=== PATIENT | female | born 1945 | race Caucasian/White ===

== ENCOUNTER 2018-03-06 00:19 | Emergency (ER) | payer MEDICARE ==
[~2018-03-06] VITALS: Ht 170.2 cm; Wt 83.9 kg
[~2018-03-06 00:19] MED LIST: ASPI81CH PO; CEFU500 PO; CITA10S PO; Celexa10 MG PO; LISHYD1012 PO; LISI20 PO; Oxycodone HCl20 M1 PO; PRED10 PO; PREG150 PO; PREG50 PO; TIZANIDINE HCL2 MG PO
[2018-03-06 03:40] LABS: BASOPHILS ABSOLUTE AUTO 0.03 K/mm3 (0.00-0.23); BASOPHILS PERCENT AUTO 0 % (0-2); EOSINOPHILS ABSOLUTE AUTO 0.15 K/mm3 (0.00-0.68); EOSINOPHILS PERCENT AUTO 2 % (0-6); Hematocrit 33.3 % (33.0-51.0); Hemoglobin 10.4 g/dL (11.5-16.0); IMMATURE GRAN ABSOLUTE AUTO 0.02 K/mm3 (0.00-0.10); IMMATURE GRAN PERCENT AUTO 0 % (0-1); LYMPHOCYTES ABSOLUTE AUTO 1.81 K/mm3 (0.84-5.20); LYMPHOCYTES PERCENT AUTO 24 % (21-46); MONOCYTES ABSOLUTE AUTO 0.97 K/mm3 (0.16-1.47); MONOCYTES PERCENT AUTO 13 % (4-13); Mean Corpuscular HGB 28.5 pg (26.0-34.0); Mean Corpuscular HGB Conc 31.2 g/dL (31.5-36.5); Mean Corpuscular Volume 91 fL (80-100); Mean Platelet Volume 11.1 fL (9.1-12.4); NEUTROPHILS ABSOLUTE AUTO 4.56 K/mm3 (1.96-9.15); NEUTROPHILS PERCENT AUTO 60 % (41-73); Platelet Count 159 K/mm3 (150-400); RDW Coefficient Variation 14.5 % (11.7-14.2); RDW Standard Deviation 48.5 fL (35.1-46.3); Red Blood Cell Count 3.65 M/mm3 (3.80-5.20); White Blood Cell Count 7.54 K/mm3 (4.00-11.30)
[2018-03-06 03:59] LABS: Alanine Aminotransfer (ALT/SGP 15 U/L (12-78); Albumin, Blood 3.4 g/dL (3.4-5.0); Alk Phos 66 U/L (50-136); Anion Gap 8 mmol/L (6-16); Aspartate Aminotrans (AST/SGOT 12 U/L (12-37); Bilirubin, Total 0.3 mg/dL (0.1-1.0); Blood Urea Nitrogen 25 mg/dL (8-24); Bun/Creatinine Ratio 16.4 (12.0-20.0); CO2, Blood 27 mmol/L (21-32); Calcium, Blood 8.2 mg/dL (8.5-10.1); Chloride, Blood 106 mmol/L (98-108); Creatinine, Blood 1.52 mg/dL (0.40-1.00); Globulin, Blood 3.4 g/dL (2.2-4.0); Glomerular Filtration Rate 36 (60-); Glucose, Blood 115 mg/dL (70-99); Potassium, Blood 3.9 mmol/L (3.5-5.5); Sodium, Blood 141 mmol/L (136-145); Total Protein, Blood 6.8 g/dL (6.4-8.2); Troponin I <0.015 ng/mL (0.000-0.040)
== END 2018-03-06 04:45 | disposition home or self-care (01) ==
LOC: ER 00:19
PROVIDERS: Emergency Medicine
DX: R29.818 Other symptoms and signs involving the nervous system (principal); G43.909 Migraine, unspecified, not intractable, without status migrainosus; Z88.0 Allergy status to penicillin; Z88.5 Allergy status to narcotic agent; Z91.040 Latex allergy status; Z79.899 Other long term (current) drug therapy; Z79.82 Long term (current) use of aspirin
CPT/HCPCS: 70450; 80053; 84484; 85025; 93005; 93010; 99284-25

== ENCOUNTER 2018-12-19 06:58 | Emergency (ER) | payer MEDICARE, OTHER ==
[~2018-12-19] VITALS: Ht 170.2 cm; Wt 83.9 kg
[2018-12-19] MEDS ORDERED: BACL10 PO (07:39)
[2018-12-19 07:40] LABS: BASOPHILS ABSOLUTE AUTO 0.04 K/mm3 (0.00-0.23); BASOPHILS PERCENT AUTO 0 % (0-2); EOSINOPHILS ABSOLUTE AUTO 0.14 K/mm3 (0.00-0.68); EOSINOPHILS PERCENT AUTO 1 % (0-6); Hematocrit 34.5 % (33.0-51.0); Hemoglobin 10.9 g/dL (11.5-16.0); IMMATURE GRAN ABSOLUTE AUTO 0.03 K/mm3 (0.00-0.10); IMMATURE GRAN PERCENT AUTO 0 % (0-1); LYMPHOCYTES ABSOLUTE AUTO 1.61 K/mm3 (0.84-5.20); LYMPHOCYTES PERCENT AUTO 16 % (21-46); MONOCYTES ABSOLUTE AUTO 0.95 K/mm3 (0.16-1.47); MONOCYTES PERCENT AUTO 10 % (4-13); Mean Corpuscular HGB 28.1 pg (26.0-34.0); Mean Corpuscular HGB Conc 31.6 g/dL (31.5-36.5); Mean Corpuscular Volume 89 fL (80-100); Mean Platelet Volume 11.6 fL (9.1-12.4); NEUTROPHILS ABSOLUTE AUTO 7.08 K/mm3 (1.96-9.15); NEUTROPHILS PERCENT AUTO 72 % (41-73); Platelet Count 171 K/mm3 (150-400); RDW Standard Deviation 49.1 fL (35.1-46.3); Red Blood Cell Count 3.88 M/mm3 (3.80-5.20); White Blood Cell Count 9.85 K/mm3 (4.00-11.30)
[2018-12-19] MEDS ORDERED: ALPR.5 PO (07:40)
[2018-12-19] MEDS ORDERED: FURO40 PO (07:40)
[2018-12-19] MEDS ORDERED: POTCHL10ER PO (07:41)
[2018-12-19 07:49] LABS: Albumin, Blood 3.7 g/dL (3.4-5.0); Albumin/Globulin Ratio 1.1 (0.8-1.8); Bilirubin, Total 0.4 mg/dL (0.1-1.0); Bun/Creatinine Ratio 21.3 (12.0-20.0); Calcium, Blood 8.5 mg/dL (8.5-10.1); Creatinine, Blood 1.74 mg/dL (0.40-1.00); Globulin, Blood 3.4 g/dL (2.2-4.0); Potassium, Blood 3.7 mmol/L (3.5-5.5); Total Protein, Blood 7.1 g/dL (6.4-8.2)
[2018-12-19 08:10] LABS: Source, Urine Clean Catch
[2018-12-19 08:13] LABS: Bilirubin, Urine Neg (Neg); Blood, Urine 1+ (Neg); Glucose Qualitative, Urine Neg (Neg); Ketones, Urine Neg (Neg); Leukocyte Esterase, Urine 1+ (Neg); Nitrite, Urine Neg (Neg); Protein, Urine 1+ (Neg); Urobilinogen, Urine NORM (Normal)
[2018-12-19 08:18] LABS: Appearance, Urine Clear (Clear); Color, Urine Yellow (P-Yellow)
[2018-12-19 08:21] LABS: Bacteria Few /hpf; Red Blood Cells, Urine 0-2 /hpf (0-2); Squamous Epithelial Cells Few /hpf (Few)
[2018-12-19 08:23] LABS: Calcium Oxalate Crystals Rare /hpf
[2018-12-19 08:24] LABS: Transitional Epithelial Cells Rare /hpf (0-Rare)
[2018-12-19] MEDS ORDERED: Macrobid 100 M100 MG PO (08:56)
== END 2018-12-19 10:32 | disposition home or self-care (01) ==
LOC: ER 06:58
PROVIDERS: Emergency Medicine
DX: E86.0 Dehydration (principal); N39.0 Urinary tract infection, site not specified; Z88.0 Allergy status to penicillin; Z88.5 Allergy status to narcotic agent; Z91.040 Latex allergy status; Z79.899 Other long term (current) drug therapy; Z79.82 Long term (current) use of aspirin; F41.9 Anxiety disorder, unspecified; I12.9 Hypertensive chronic kidney disease with stage 1 through stage 4 chronic kidney disease, or unspecified chronic kidney disease; N18.3 Chronic kidney disease, stage 3 (moderate); Z86.73 Personal history of transient ischemic attack (TIA), and cerebral infarction without residual deficits
CPT/HCPCS: 80053; 81001; 85025; 87086; 93005; 93010; 96361; 96365; 99284-25; A9270-GY; J0696; J3010; J7030

== ENCOUNTER → 2019-05-21 | Outpatient (CLI) | payer MEDICARE, BC ==
[~2019-05-21] MED LIST changes: +ALPR.5 PO; +BACL10 PO; +FURO40 PO; +Macrobid 100 M100 MG PO; +POTCHL10ER PO
[2019-05-21 17:43] LABS: BASOPHILS ABSOLUTE AUTO 0.04 K/mm3 (0.00-0.23); BASOPHILS PERCENT AUTO 1 % (0-2); EOSINOPHILS ABSOLUTE AUTO 0.12 K/mm3 (0.00-0.68); EOSINOPHILS PERCENT AUTO 2 % (0-6); Hematocrit 37.4 % (33.0-51.0); Hemoglobin 11.9 g/dL (11.5-16.0); IMMATURE GRAN ABSOLUTE AUTO 0.02 K/mm3 (0.00-0.10); IMMATURE GRAN PERCENT AUTO 0 % (0-1); LYMPHOCYTES ABSOLUTE AUTO 1.21 K/mm3 (0.84-5.20); LYMPHOCYTES PERCENT AUTO 20 % (21-46); MONOCYTES ABSOLUTE AUTO 0.36 K/mm3 (0.16-1.47); MONOCYTES PERCENT AUTO 6 % (4-13); Mean Corpuscular HGB 28.5 pg (26.0-34.0); Mean Corpuscular HGB Conc 31.8 g/dL (31.5-36.5); Mean Corpuscular Volume 90 fL (80-100); Mean Platelet Volume 11.4 fL (9.1-12.4); NEUTROPHILS ABSOLUTE AUTO 4.22 K/mm3 (1.96-9.15); NEUTROPHILS PERCENT AUTO 71 % (41-73); Platelet Count 167 K/mm3 (150-400); RDW Coefficient Variation 14.3 % (11.7-14.2); RDW Standard Deviation 45.8 fL (35.1-46.3); Red Blood Cell Count 4.18 M/mm3 (3.80-5.20); White Blood Cell Count 5.97 K/mm3 (4.00-11.30)
[2019-05-21 17:54] LABS: Anion Gap 6 mmol/L (6-16); Blood Urea Nitrogen 19 mg/dL (8-24); Bun/Creatinine Ratio 18.3 (12.0-20.0); CO2, Blood 27 mmol/L (21-32); Calcium, Blood 8.9 mg/dL (8.5-10.1); Chloride, Blood 108 mmol/L (98-108); Creatinine, Blood 1.04 mg/dL (0.40-1.00); Glomerular Filtration Rate 52 (60-); Glucose, Blood 109 mg/dL (70-99); Potassium, Blood 4.2 mmol/L (3.5-5.5); Sodium, Blood 141 mmol/L (136-145)
[2019-05-21 17:55] LABS: Troponin I <0.017 ng/mL (0.000-0.040)
== END | disposition home or self-care (01) ==
LOC: LAB EV 17:37 → LAB SHORT 17:37
PROVIDERS: Family Medicine
DX: R06.00 Dyspnea, unspecified (principal)
CPT/HCPCS: 80048; 83880; 84484; 85025

== ENCOUNTER → 2020-01-01 | Outpatient (CLI) | payer MEDICARE, BC | END | disposition home or self-care (01) | LOC: LAB SHORT 09:31 → LAB 09:31 → LAB FUT 12-30 15:00 | DX: N18.3 Chronic kidney disease, stage 3 (moderate) (principal); D63.1 Anemia in chronic kidney disease; R76.9 Abnormal immunological finding in serum, unspecified | CPT/HCPCS: 86335 ==

== ENCOUNTER → 2022-05-15 | Outpatient (CLI) | payer MEDICARE ==
[~2022-05-15] MED LIST changes: +Aspir 8181 MG PO; +FURO20 PO; -FURO40 PO; +POTA8 PO; -POTCHL10ER PO
== END | disposition home or self-care (01) ==
LOC: LAB SHORT 14:43 → LAB 14:43
DX: L57.8 Other skin changes due to chronic exposure to nonionizing radiation (principal); L08.9 Local infection of the skin and subcutaneous tissue, unspecified; L81.4 Other melanin hyperpigmentation; L82.1 Other seborrheic keratosis; L60.8 Other nail disorders; L28.1 Prurigo nodularis; I83.93 Asymptomatic varicose veins of bilateral lower extremities; Z71.89 Other specified counseling
CPT/HCPCS: 87070; 87205

== ENCOUNTER 2022-06-24 15:12 | Emergency (ER) | payer MEDICARE ==
[~2022-06-24 15:12] MED LIST changes: -Lasix20 MG PO
[2022-06-24] MEDS ORDERED: Lasix20 MG PO (18:08)
== END 2022-06-24 18:20 | disposition home or self-care (01) ==
DX: R22.43 Localized swelling, mass and lump, lower limb, bilateral (principal); I12.9 Hypertensive chronic kidney disease with stage 1 through stage 4 chronic kidney disease, or unspecified chronic kidney disease; N18.30 Chronic kidney disease, stage 3 unspecified

== ENCOUNTER → 2022-06-24 | Outpatient (CLI) | payer MEDICARE ==
[~2022-06-24] MED LIST changes: +Lasix20 MG PO
== END | disposition home or self-care (01) ==
DX: M79.89 Other specified soft tissue disorders (principal); R53.81 Other malaise

== ENCOUNTER 2022-07-12 10:26 | Observation (INO) | payer MEDICARE ==
[~2022-07-12] VITALS: Ht 175.3 cm; Wt 95.2 kg
[~2022-07-12 10:26] MED LIST changes: +Lasix20 MG PO
[2022-07-12 11:15] LABS: BASOPHILS ABSOLUTE AUTO 0.02 K/mm3 (0.00-0.23); BASOPHILS PERCENT AUTO 0 % (0-2); EOSINOPHILS ABSOLUTE AUTO 0.01 K/mm3 (0.00-0.68); EOSINOPHILS PERCENT AUTO 0 % (0-6); Hematocrit 37.6 % (33.0-51.0); Hemoglobin 12.3 g/dL (11.5-16.0); IMMATURE GRAN ABSOLUTE AUTO 0.03 K/mm3 (0.00-0.10); IMMATURE GRAN PERCENT AUTO 0 % (0-1); LYMPHOCYTES PERCENT AUTO 8 % (21-46); MONOCYTES ABSOLUTE AUTO 0.75 K/mm3 (0.16-1.47); MONOCYTES PERCENT AUTO 7 % (4-13); Mean Corpuscular HGB Conc 32.7 g/dL (31.5-36.5); Mean Corpuscular Volume 86 fL (80-100); NEUTROPHILS ABSOLUTE AUTO 9.89 K/mm3 (1.96-9.15); NEUTROPHILS PERCENT AUTO 85 % (41-73); Platelet Count 222 K/mm3 (150-400); RDW Coefficient Variation 15.1 % (11.7-14.2); RDW Standard Deviation 47.6 fL (35.1-46.3)
[2022-07-12 11:34] LABS: International Normalized Ratio 1.02; Prothrombin Time Results 10.7 Sec (9.7-11.5)
[2022-07-12 11:40] LABS: Alanine Aminotransfer (ALT/SGP 18 U/L (12-78); Albumin, Blood 3.5 g/dL (3.4-5.0); Albumin/Globulin Ratio 0.8 (0.8-1.8); Alk Phos 64 U/L (50-136); Anion Gap 8 mmol/L (6-16); Aspartate Aminotrans (AST/SGOT 23 U/L (12-37); Bilirubin, Total 0.9 mg/dL (0.1-1.0); Blood Urea Nitrogen 29 mg/dL (8-24); Bun/Creatinine Ratio 19.5 (12.0-20.0); CO2, Blood 25 mmol/L (21-32); Calcium, Blood 9.5 mg/dL (8.5-10.1); Chloride, Blood 112 mmol/L (98-108); Creatinine, Blood 1.49 mg/dL (0.40-1.00); Ethanol (Alcohol), Blood, Med <3 mg/dL; Globulin, Blood 4.2 g/dL (2.2-4.0); Glomerular Filtration Rate 36 (60-); Glucose, Blood 111 mg/dL (70-99); Potassium, Blood 3.9 mmol/L (3.5-5.5); Sodium, Blood 145 mmol/L (136-145); Total Protein, Blood 7.7 g/dL (6.4-8.2)
[2022-07-12 12:05] LABS: Creatine Kinase MB 5.7 ng/mL (0.0-3.6); Creatine Kinase MB Index 1.7 (0.0-4.0)
[2022-07-12 12:17] LABS: Source, Urine Straight Cath
[2022-07-12 12:20] LABS: Appearance, Urine Clear (Clear); Bilirubin, Urine Neg (Neg); Blood, Urine 1+ (Neg); Color, Urine Yellow (P-Yellow); Glucose Qualitative, Urine Neg (Neg); Ketones, Urine 1+ (Neg); Leukocyte Esterase, Urine Neg (Neg); Nitrite, Urine Neg (Neg); Protein, Urine 2+ (Neg); Urobilinogen, Urine NORM (Normal)
[2022-07-12 12:31] LABS: U Amphetamine Screen Not Detected; U Barbituate Screen Not Detected; U Benzodiazapine Screen Not Detected; U Buprenorphine Screen Not Detected; U Cannabinoids Screen Not Detected; U Cocaine Screen Not Detected; U Methadone Screen Not Detected; U Methamphetamine Screen Not Detected; U Opiates Screen Not Detected; U Oxycodone Screen DETECTED; U Phencyclidine Screen Not Detected; U Propoxyphene Screen Not Detected
[2022-07-12 12:32] LABS: Bacteria Not Seen /hpf; Red Blood Cells, Urine 0-2 /hpf (0-2); Squamous Epithelial Cells Rare /hpf (Few); White Blood Cells, Urine Not Seen /hpf (0-5)
--- NOTE | 2022-07-12 21:02 | NUR ---
PATIENT IS A NEW ADMIT FROM THE ED. AXO X 2 AND THREE PERSON TRANSFER FROM [facility] TO BED. REPORTS GLF AT HOME. RACCOON EYES WITH BLOOD NOTED RIGHT SCLERA. BRUISING TO TOP RIGHT SHOULDER. BRUISED LIPS AND FOREHEAD SWOLLEN. DENIES PAIN, SOB, AND N/V. ON ROOM AIR AND BEDREST. ORIENTED TO ROOM AND CALL LIGHT SYSTEM. DAUGHTER PRESENT AFTER ASSESSMENT REPORTING POA WITH HER IN ROOM. THEY WILL STAY FOR AWHILE. TM
--- NOTE | 2022-07-13 04:16 | NUR ---
SHIFT SUMMARY PATIENT MENTATION IMPROVING SINCE ADMIT. MORE ALERT AND ORIENTED X 3 STATING HER NEEDS.BEDREST. REPORTED NEW NECK PAIN FROM GLF ALONG WITH CHRONIC BACK PAIN. OXYCODONE 5 MG GIVEN PER EMAR. PATIENT ABLE TO SLEEP WITH PAIN MANAGMENT. VSS/AFEBRILE. DENIES CHEST PAIN, SOB, AND N/V. PIV REMAINS INTACT. NS INFUSING AT 150mL/HR. DAUGHTER PRESENT AFTER ADMIT AND LEFT NAME & # ON BOARD. REPORTED PATIENT HAS HX OF ALZHEIMER. SCATTERED BRUISING PREVIOUSLY NOTED. CALL LIGHT IN REACH. BED IN LOWEST POSITION AND ALARM ACTIVATED. WILL CONTINUE TO MONITOR UNTIL DAY SHIFT NURSE ASSUMES CARE.
[2022-07-13 07:51] LABS: BASOPHILS ABSOLUTE AUTO 0.03 K/mm3 (0.00-0.23); BASOPHILS PERCENT AUTO 0 % (0-2); EOSINOPHILS ABSOLUTE AUTO 0.02 K/mm3 (0.00-0.68); EOSINOPHILS PERCENT AUTO 0 % (0-6); Hematocrit 32.3 % (33.0-51.0); Hemoglobin 10.2 g/dL (11.5-16.0); IMMATURE GRAN ABSOLUTE AUTO 0.03 K/mm3 (0.00-0.10); IMMATURE GRAN PERCENT AUTO 0 % (0-1); LYMPHOCYTES ABSOLUTE AUTO 1.33 K/mm3 (0.84-5.20); LYMPHOCYTES PERCENT AUTO 13 % (21-46); MONOCYTES ABSOLUTE AUTO 0.77 K/mm3 (0.16-1.47); MONOCYTES PERCENT AUTO 8 % (4-13); Mean Corpuscular HGB 27.4 pg (26.0-34.0); Mean Corpuscular HGB Conc 31.6 g/dL (31.5-36.5); Mean Corpuscular Volume 87 fL (80-100); Mean Platelet Volume 12.1 fL (9.1-12.4); NEUTROPHILS ABSOLUTE AUTO 7.83 K/mm3 (1.96-9.15); NEUTROPHILS PERCENT AUTO 78 % (41-73); Platelet Count 169 K/mm3 (150-400); RDW Coefficient Variation 15.6 % (11.7-14.2); RDW Standard Deviation 49.4 fL (35.1-46.3); Red Blood Cell Count 3.72 M/mm3 (3.80-5.20); White Blood Cell Count 10.01 K/mm3 (4.00-11.30)
[2022-07-13 08:14] LABS: CPK Creatine Kinase 188 U/L (26-193)
[2022-07-13 08:33] LABS: Osmolality, Serum 296 mos/KG (275-300)
[2022-07-13 08:59] LABS: Magnesium, Blood 1.8 mg/dL (1.6-2.4)
[2022-07-13 09:00] LABS: Albumin, Blood 2.9 g/dL (3.4-5.0); Albumin/Globulin Ratio 0.9 (0.8-1.8); Bilirubin, Total 0.7 mg/dL (0.1-1.0); Bun/Creatinine Ratio 19.4 (12.0-20.0); Calcium, Blood 8.3 mg/dL (8.5-10.1); Creatinine, Blood 1.24 mg/dL (0.40-1.00); Globulin, Blood 3.3 g/dL (2.2-4.0); Potassium, Blood 3.5 mmol/L (3.5-5.5); Total Protein, Blood 6.2 g/dL (6.4-8.2)
[2022-07-13 09:31] LABS: PCO2 Arterial 34.2 mmHg (35-45); PO2 Arterial 91.2 mmHg (80-100); pH Blood Arterial 7.35 (7.35-7.45)
--- NOTE | 2022-07-13 16:21 | NUR ---
DISCHARGE SUMMARY PATIENT IS ALERT AND ORIENTED 2-3X. PATIENT HAS HAD NO ACUTE EVENTS THIS SHIFT. VITAL SIGNS REVIEWED. PATIENT IS BEING DISCHARGED HOME WITH HOME HEALTH. PATIENT IS WHEELED OUT BY EVE HERNANDEZ WITH FAMILY TRANSPORTING.
== END 2022-07-13 16:12 | disposition home health service (06) ==
LOC: ER 10:26 → ERHOLD 10:27 → MEDS 19:50
PROVIDERS: Family Medicine; Nurse Practitioner Acute Care; Student in an Organized Health Care Education/Training Program; ADMIT Hospitalist
DX: G92.8 Other toxic encephalopathy (principal); N17.9 Acute kidney failure, unspecified; G89.29 Other chronic pain; M54.9 Dorsalgia, unspecified; M79.7 Fibromyalgia; S05.10XA Contusion of eyeball and orbital tissues, unspecified eye, initial encounter; I10 Essential (primary) hypertension; Z91.040 Latex allergy status; Z88.5 Allergy status to narcotic agent; Z88.0 Allergy status to penicillin; Z88.8 Allergy status to other drugs, medicaments and biological substances
CPT/HCPCS: 36415; 36600; 70450; 70486; 71260; 72125; 74177; 80053; 81001; 82550; 82553; 82803; 83735; 83930; 85025; 85610; 93005; 93010; 96361; 96372; 96374-59; 97116; 97162; 97530; 99285-25; A9270; G0378; G0480; J1650; J2550; J7030; Q9967

== ENCOUNTER 2023-02-19 10:37 | Emergency (ER) | payer MEDICARE ==
[~2023-02-19] VITALS: Ht 170.2 cm; Wt 67.6 kg
[2023-02-19 10:44] VITALS: BP 121/66
[2023-02-19] MEDS ORDERED: Omeprazole20 M1 PO (12:51)
== END 2023-02-19 13:04 | disposition home or self-care (01) ==
LOC: ER 10:37
DX: R13.10 Dysphagia, unspecified (principal); K21.9 Gastro-esophageal reflux disease without esophagitis; Z88.0 Allergy status to penicillin; Z88.5 Allergy status to narcotic agent; Z91.040 Latex allergy status; Z79.899 Other long term (current) drug therapy; I12.9 Hypertensive chronic kidney disease with stage 1 through stage 4 chronic kidney disease, or unspecified chronic kidney disease; M19.90 Unspecified osteoarthritis, unspecified site; N18.30 Chronic kidney disease, stage 3 unspecified
CPT/HCPCS: 74220; 99282-25

== ENCOUNTER → 2023-09-02 | Outpatient (CLI) | payer MEDICARE ==
[~2023-09-02] MED LIST changes: +Omeprazole20 M1 PO
[2023-09-06 11:54] LABS: Stool Occult Bld Immuno 1 Negative (NEGATIVE)
== END ==
LOC: LAB SHORT 09-02 12:00 → LAB 12:00
PROVIDERS: Physician Assistant
DX: Z12.11 Encounter for screening for malignant neoplasm of colon (principal)
CPT/HCPCS: G0328

== ENCOUNTER 2023-09-22 12:46 | Emergency (ER) | payer MEDICARE ==
[~2023-09-22] VITALS: Ht 162.6 cm; Wt 49.9 kg
[2023-09-22] MEDS ORDERED: Mag Hydrox/AL Hydrox/Simeth 30 ML UDC PO ONE (15:15)
[2023-09-22] MEDS ORDERED: Lidocaine 2% Viscous Soln 15 ML UDC PO ONE (15:15)
[2023-09-22] MEDS ORDERED: PANT20 PO (16:15)
[2023-09-22 16:25] VITALS: BP 144/59
== END 2023-09-22 16:25 | disposition home or self-care (01) ==
LOC: ER 12:46
DX: R13.10 Dysphagia, unspecified (principal); I12.9 Hypertensive chronic kidney disease with stage 1 through stage 4 chronic kidney disease, or unspecified chronic kidney disease; N18.9 Chronic kidney disease, unspecified; M79.7 Fibromyalgia; Z79.899 Other long term (current) drug therapy; Z88.0 Allergy status to penicillin; Z88.5 Allergy status to narcotic agent; Z91.040 Latex allergy status
CPT/HCPCS: 99284-25; A9270

== ENCOUNTER → 2024-02-11 | Outpatient (CLI) | payer MEDICARE ==
[~2024-02-11] MED LIST changes: +PANT20 PO
== END ==
LOC: LAB 16:28 → LAB SHORT 16:28
DX: N39.0 Urinary tract infection, site not specified (principal)
CPT/HCPCS: 87086

== ENCOUNTER 2024-09-08 08:40 | Day surgery (SDC) | payer MEDICARE ==
[~2024-09-08] VITALS: Ht 170.2 cm; Wt 81.5 kg
[2024-09-08] MEDS ORDERED: Lactated Ringer's 1,000 ML IV ONE ×2 (09:01→11:16)
[2024-09-08] MEDS ORDERED: propofoL 50 ML IV ONE (09:01)
[2024-09-08] MEDS ORDERED: QUETIAPINE FUM150 MG (09:19)
[2024-09-08] MEDS ORDERED: DODEX1000 MCG/3 (09:19)
[2024-09-08] MEDS ORDERED: Atarax10 MG (09:19)
[2024-09-08] MEDS ORDERED: OMEP20ER (09:19)
[2024-09-08 12:17] VITALS: BP 153/88
== END 2024-09-08 12:13 | disposition home or self-care (01) ==
LOC: ORSCSDS 08:40
PROVIDERS: Surgery
PROC: 0D758ZZ Dilation of Esophagus, Via Natural or Artificial Opening Endoscopic (ICD-10-PCS; principal; 2024-09-08 11:15)
PROC: 0DB68ZX Excision of Stomach, Via Natural or Artificial Opening Endoscopic, Diagnostic (ICD-10-PCS; principal; 2024-09-08 11:15)
DX: R13.19 Other dysphagia (principal); K21.9 Gastro-esophageal reflux disease without esophagitis; K44.9 Diaphragmatic hernia without obstruction or gangrene; K22.2 Esophageal obstruction; I10 Essential (primary) hypertension; F32.A Depression, unspecified; I12.9 Hypertensive chronic kidney disease with stage 1 through stage 4 chronic kidney disease, or unspecified chronic kidney disease; F41.9 Anxiety disorder, unspecified; N18.9 Chronic kidney disease, unspecified; Z79.82 Long term (current) use of aspirin; Z79.899 Other long term (current) drug therapy
CPT/HCPCS: 88305; 88342; C1726; J2704; J7120

== ENCOUNTER → 2025-07-09 | Outpatient (CLI) | payer MEDICARE ==
[~2025-07-09] MED LIST changes: +Atarax10 MG; +BUME2 PO; +DODEX1000 MCG/3 IM; +FUROSEMIDE40 MG PO; +HYDHCL25 PO; +MEMA5TAB PO; +MOVANTIK12.5 MG PO; +OMEP20ER PO; +OXYC10TA19 PO; +POTA10T PO; +QUETIAPINE FUM150 MG; +SENN187 PO; +SEROQUEL XR200 MG PO
== END ==
LOC: LAB SHORT 16:02 → LAB 16:02
DX: N18.30 Chronic kidney disease, stage 3 unspecified (principal); N39.0 Urinary tract infection, site not specified
CPT/HCPCS: 87086

== ENCOUNTER 2025-07-11 12:28 | Inpatient (IN) | payer MEDICARE ==
[~2025-07-11] VITALS: Ht 175.3 cm; Wt 73.6 kg
[~2025-07-11 12:28] MED LIST changes: -BUME2 PO; -FUROSEMIDE40 MG PO; -HYDHCL25 PO; -MEMA5TAB PO; -MOVANTIK12.5 MG PO; -OXYC10TA19 PO; -POTA10T PO; -SENN187 PO; -SEROQUEL XR200 MG PO
[2025-07-11 13:26] LABS: BASOPHILS ABSOLUTE AUTO 0.04 K/mm3 (0.00-0.23); BASOPHILS PERCENT AUTO 0 % (0-2); EOSINOPHILS ABSOLUTE AUTO 0.15 K/mm3 (0.00-0.68); EOSINOPHILS PERCENT AUTO 1 % (0-6); Hematocrit 40.0 % (33.0-51.0); Hemoglobin 13.1 g/dL (11.5-16.0); IMMATURE GRAN ABSOLUTE AUTO 0.06 K/mm3 (0.00-0.10); IMMATURE GRAN PERCENT AUTO 1 % (0-1); LYMPHOCYTES ABSOLUTE AUTO 1.51 K/mm3 (0.84-5.20); LYMPHOCYTES PERCENT AUTO 13 % (21-46); MONOCYTES ABSOLUTE AUTO 1.01 K/mm3 (0.16-1.47); MONOCYTES PERCENT AUTO 9 % (4-13); Mean Corpuscular HGB Conc 32.8 g/dL (31.5-36.5); Mean Corpuscular Volume 86 fL (80-100); NEUTROPHILS ABSOLUTE AUTO 8.82 K/mm3 (1.96-9.15); NEUTROPHILS PERCENT AUTO 76 % (41-73); NRBC ABSOLUTE 0.00 K/mm3 (0.00-0.02); NRBC Auto 0.0 /100 WBC (0.0-0.2); Platelet Count 187 K/mm3 (150-400); RDW Coefficient Variation 14.1 % (11.7-14.2); RDW Standard Deviation 43.7 fL (35.1-46.3)
[2025-07-11 13:57] LABS: Alanine Aminotransfer (ALT/SGP 37.0 U/L (12-78); Albumin, Blood 3.8 g/dL (3.4-5.0); Albumin/Globulin Ratio 1.0 (0.8-1.8); Anion Gap 14.0 mmol/L (3-11); Aspartate Aminotrans (AST/SGOT 41.0 U/L (12-37); Bilirubin, Total 0.5 mg/dL (0.1-1.0); Blood Urea Nitrogen 112.0 mg/dL (8-24); CO2, Blood 23.0 mmol/L (21-32); Calcium, Blood 9.8 mg/dL (8.5-10.1); Chloride, Blood 96.0 mmol/L (98-108); Creatinine, Blood 4.45 mg/dL (0.40-1.00); Globulin, Blood 3.7 g/dL (2.2-4.0); Glucose, Blood 111.0 mg/dL (70-99); Potassium, Blood 5.1 mmol/L (3.5-5.5); Sodium, Blood 128.0 mmol/L (136-145); Total Protein, Blood 7.5 g/dL (6.4-8.2)
[2025-07-11 19:16] LABS: Source, Urine Clean Catch
[2025-07-11 19:18] LABS: Bilirubin, Urine Neg (Neg); Color, Urine Yellow (P-Yellow); Glucose Qualitative, Urine Neg (Neg); Ketones, Urine Neg (Neg); Leukocyte Esterase, Urine Neg (Neg); Protein, Urine 1+ (Neg); Specific Gravity, Urine 1.010 (1.003-1.022); Urobilinogen, Urine NORM (Normal)
[2025-07-11 19:30] LABS: White Blood Cells, Urine 0-2 /hpf (0-5)
[2025-07-11] MEDS ORDERED: FLU VACC TS2025(65UP)/MF59C/PF 45 MCG/0.5 ML SYRINGE IM SCH (19:55)
[2025-07-11] MEDS ORDERED: Magnesium Hydroxide Conc 10 ML UDC PO ONE (20:00)
[2025-07-11] MEDS ORDERED: MEMA5TAB PO ×2 (20:11)
[2025-07-11] MEDS ORDERED: POTA10T PO ×2 (20:12)
[2025-07-11] MEDS ORDERED: BUME2 PO ×2 (20:12)
[2025-07-11] MEDS ORDERED: OXYC10TA19 PO ×2 (20:13)
[2025-07-11] MEDS ORDERED: SEROQUEL XR200 MG PO ×2 (20:15)
[2025-07-11] MEDS ORDERED: HYDHCL25 PO ×2 (20:15)
[2025-07-11] MEDS ORDERED: Heparin Sodium,Porcine 5,000 UNIT/0.5 ML SDV SC SCH (21:00)
[2025-07-11 21:21] VITALS: BP 124/58
--- NOTE | 2025-07-11 22:10 | NUR ---
TRANSFER NOTE: PT AOX4 WITH SOME CONFUSION BUT REORIENTS EASILY. PT WAS SLID FROM GURNEY TO BED TOLERATING WELL. BLE ARE VERY EDEMETOUS, FAMILY STATES THIS IS NEW. PT PLEASANT CAND COOPERATIVE IN CARE. HAD BARAJAS PLACED FOR RETENTION IN ED. DRAINING WELL TO GRAVITY. PT IN BED RESTING, REFUSED SCDS, AGREEABLE TO ATTEMPT STOCKINGS. BED IN LOWEST POSITION, CALL LIGHT IN REACH CONTINUING CARE.
[2025-07-11 23:58] VITALS: BP 112/58
[2025-07-12 00:43] LABS: Anion Gap 13.0 mmol/L (3-11); Blood Urea Nitrogen 116.0 mg/dL (8-24); CO2, Blood 23.0 mmol/L (21-32); Calcium, Blood 9.2 mg/dL (8.5-10.1); Chloride, Blood 98.0 mmol/L (98-108); Creatinine, Blood 3.74 mg/dL (0.40-1.00); Glucose, Blood 110.0 mg/dL (70-99); Potassium, Blood 4.7 mmol/L (3.5-5.5); Sodium, Blood 129.0 mmol/L (136-145)
[2025-07-12 04:42] LABS: BASOPHILS ABSOLUTE AUTO 0.05 K/mm3 (0.00-0.23); BASOPHILS PERCENT AUTO 1 % (0-2); EOSINOPHILS ABSOLUTE AUTO 0.12 K/mm3 (0.00-0.68); EOSINOPHILS PERCENT AUTO 1 % (0-6); Hematocrit 34.4 % (33.0-51.0); Hemoglobin 11.6 g/dL (11.5-16.0); IMMATURE GRAN ABSOLUTE AUTO 0.02 K/mm3 (0.00-0.10); IMMATURE GRAN PERCENT AUTO 0 % (0-1); LYMPHOCYTES ABSOLUTE AUTO 1.23 K/mm3 (0.84-5.20); LYMPHOCYTES PERCENT AUTO 13 % (21-46); MONOCYTES ABSOLUTE AUTO 0.74 K/mm3 (0.16-1.47); MONOCYTES PERCENT AUTO 8 % (4-13); Mean Corpuscular HGB Conc 33.7 g/dL (31.5-36.5); Mean Corpuscular Volume 85 fL (80-100); NEUTROPHILS ABSOLUTE AUTO 7.27 K/mm3 (1.96-9.15); NEUTROPHILS PERCENT AUTO 77 % (41-73); NRBC ABSOLUTE 0.00 K/mm3 (0.00-0.02); NRBC Auto 0.0 /100 WBC (0.0-0.2); Platelet Count 186 K/mm3 (150-400); RDW Coefficient Variation 13.9 % (11.7-14.2); RDW Standard Deviation 42.7 fL (35.1-46.3)
[2025-07-12 05:07] LABS: Anion Gap 13.0 mmol/L (3-11); Blood Urea Nitrogen 112.0 mg/dL (8-24); CO2, Blood 24.0 mmol/L (21-32); Calcium, Blood 9.6 mg/dL (8.5-10.1); Chloride, Blood 96.0 mmol/L (98-108); Creatinine, Blood 3.55 mg/dL (0.40-1.00); Glucose, Blood 114.0 mg/dL (70-99); Magnesium, Blood 3.2 mg/dL (1.6-2.4); Potassium, Blood 4.7 mmol/L (3.5-5.5); Sodium, Blood 128.0 mmol/L (136-145)
--- NOTE | 2025-07-12 05:13 | NUR ---
SHIFT SUMMARY: PT AOX3-4, CONFUSED AND FORGETFUL AT TIMES, BUT REORIENTS WELL. COOPERATIVE WITH CARE. BED ALARM IN PLACE. PT ABLE TO 1PA TO BSC. STILL NO BM. BARAJAS CATHETER IN PLACE DRAINING WELL TO GRAVITY. BLE ARE EDEMATOUS. PT TOLERATING MEDICATIONS WELL. BED IN LOWEST POSITION, CALL LIGHT IN REACH. CALLS APPROPRIATELY AND BALE OT MAKE NEEDS KNOWN. CONTINUING CARE.
[2025-07-12 07:54] VITALS: BP 91/46
--- NOTE | 2025-07-12 09:11 | NUR ---
CALLED DR DOTSON FOR BP 91/46 PER MONITOR- MANNUAL BP 90/40. PT DENIES DIZZINESS, LIGHTHEADNESS. EDEMA NOTED TO BLE 2+. NO NEW ORDERS RECIEVED- DR REVIEWING CHART.
[2025-07-12] MEDS ORDERED: NS 1,000 ML IV ONE (09:45)
[2025-07-12 11:13] VITALS: BP 109/54
[2025-07-12] MEDS ORDERED: FUROSEMIDE40 MG PO (11:51)
--- NOTE | 2025-07-12 15:02 | NUR ---
CALLED DR DOTSON FOR PAIN MEDICATION NEED. ATTEMPTED TWICE-LEFT VOICE MESSAGE THE SECOND TIME. AWAITING RESPONSE.
[2025-07-12 15:56] VITALS: BP 104/60
[2025-07-12] MEDS ORDERED: Polyethylene Glycol 3350 17 gm PO SCH (17:00)
--- NOTE | 2025-07-12 18:16 | NUR ---
PT ALERT AND ORIENTED X3, 1P GAIT BELT TO BSC-NO BM THIS SHIFT, BOWEL AIDS GIVEN THIS AM FOLLOWED BY [facility] THIS AFTERNOON, BP SOFT THROUGHOUT SHIFT- IVF CONTINUOUS ORDERED ALSO ENCOURAGING PT TO INCREASE ORAL INTAKE, DECREASE APPETITE- DENIES NAUSEA, OXYCODONE PRN FOR CHRONIC PAIN. URINARY CATHETER DRAINING CLEAR YELLOW URINE-PLAN PER UROLOGIST TO DC PT HOME WITH CATHETER AND FOLLOW UP OUTPT FOR FURTHER TREATMENT. PROACTIVE ROUNDINGG, BED ALARM, CALL LIGHT IN REACH.
[2025-07-12 19:21] VITALS: BP 111/51
[2025-07-13 04:02] VITALS: BP 105/59
[2025-07-13 05:12] LABS: Hematocrit 34.5 % (33.0-51.0); Hemoglobin 11.5 g/dL (11.5-16.0); Mean Corpuscular HGB Conc 33.3 g/dL (31.5-36.5); Mean Corpuscular Volume 84 fL (80-100); NRBC ABSOLUTE 0.00 K/mm3 (0.00-0.02); NRBC Auto 0.0 /100 WBC (0.0-0.2); Platelet Count 160 K/mm3 (150-400); RDW Coefficient Variation 14.0 % (11.7-14.2); RDW Standard Deviation 42.5 fL (35.1-46.3)
[2025-07-13 05:29] LABS: Anion Gap 11.0 mmol/L (3-11); Blood Urea Nitrogen 96.0 mg/dL (8-24); CO2, Blood 24.0 mmol/L (21-32); Calcium, Blood 9.6 mg/dL (8.5-10.1); Chloride, Blood 100.0 mmol/L (98-108); Creatinine, Blood 2.33 mg/dL (0.40-1.00); Glucose, Blood 91.0 mg/dL (70-99); Potassium, Blood 4.3 mmol/L (3.5-5.5); Sodium, Blood 131.0 mmol/L (136-145)
--- NOTE | 2025-07-13 05:50 | NUR ---
SHIFT SUMMARY: PT AOX3-4 FORGETFUL AND CONFUSED AT TIMES BUT REORIENTS EASILY. PT HAS A BARAJAS THAT IS DRAINING WELL TO GRAVITY, HAD SOME LEAKAGE BUT WAS REPOSITIONED AND SEEMS TO BE DOING WELL. TOLERATING MEDICATIONS WELL, NO ACUTE OVERNIGHT EVENTS. STILL NO BM DESPITE AGGRESSIVE BOWEL PREP. PT IN BED RESTING, BED IN LOWEST POSITION, CALL LIGHT IN REACH. CONTINUING CARE.
[2025-07-13 07:29] VITALS: BP 129/67
[2025-07-13] MEDS ORDERED: NS 500 ML IV SCH (11:15)
[2025-07-13 15:15] VITALS: BP 139/72
--- NOTE | 2025-07-13 18:23 | NUR ---
PT ALERT AND ORIENTED X3, FORGETFUL AT TIMES, BUT ABLE TO EXPRESS CARE NEEDS AND INVOLVE SELF IN CARE. BM THIS SHIFT LARGE AND SOFT, IVF INFUSING UNTIL 500CC BAG IS COMPLETED THEN SL, URINARY CATHETER PATENT DRAINING CLEAR YELLOW URINE. PLAN FOR DC HOME TOMMOROW- DC PT WITH BARAJAS FOLLOW UP WITH UROLOGY OUTPATIENT. CHRONIC PAIN MANAGEMENT WITH PO OXYCODONE- ON HALF DOSE DUE TO SOFT BP'S- BUT HAVE IMPROVED. ENCOURAGE PT TO INCREASE PO INTAKE. BED ALARM, CALL LIGHT IN REACH, 1P FWW TO BSC. DAUGHTER WITH WHOM PT LIVES, EDUCATED TODAY ON HOW TO EMPTY URINARY CATHETER BAG. IF PT QUALIFIES FOR HOME HEALTH DAUGHTER WOULD LIKE THIS REFFERAL AT DISCHARGE.
[2025-07-13 19:48] VITALS: BP 135/68
[2025-07-14 04:43] VITALS: BP 113/63
--- NOTE | 2025-07-14 04:52 | NUR ---
SHIFT SUMMARY: PT AOX3-4, SOME CONFUSION, REORIENTS AT TIMES. LARGE BOWEL MOVEMENT THIS EVENING. 1PA TO THE BSC STAND PIVOT. FAMILY CONCERENED THAT PT IS NOT AT THEIR BASELINE MOVEMENT [place]. CARE MANAGEMENT CONSULT PUT IN PLACE DUE TO THE CONCERN. PATIENT MY BENEFIT FROM A PT/OT EVAL ESPECIALLY WITH NEW BARAJAS CATHETER THAT THEY WILL GO HOME WITH PER UROLOGY. PT TOLERATING MEDICATIONS WELL, NO ACUTE OVERNIGHT EVENTS. PT IN BED RESTING BED IN LOWEST POSITION, CALL LIGHT IN REACH CONTINUING CARE.
[2025-07-14 07:26] VITALS: BP 135/68
[2025-07-14 08:40] LABS: Anion Gap 12.0 mmol/L (3-11); Blood Urea Nitrogen 78.0 mg/dL (8-24); CO2, Blood 24.0 mmol/L (21-32); Calcium, Blood 9.4 mg/dL (8.5-10.1); Chloride, Blood 105.0 mmol/L (98-108); Creatinine, Blood 1.62 mg/dL (0.40-1.00); Glucose, Blood 80.0 mg/dL (70-99); Potassium, Blood 4.3 mmol/L (3.5-5.5); Sodium, Blood 137.0 mmol/L (136-145)
[2025-07-14] MEDS ORDERED: SENN187 PO ×2 (13:24)
[2025-07-14] MEDS ORDERED: MOVANTIK12.5 MG PO ×2 (13:24)
--- NOTE | 2025-07-14 15:05 | NUR ---
DISCHARGE PT DISCHARGED HOME WITH DAUGHTER, AND HOME HEALTH ARRANGED. EDUCATION PROVIDED, ALL QUESTIONS ANSWERED. ALL BELONGINGS WITH PT.
== END 2025-07-14 15:00 | disposition home health service (06) | DRG 683 ==
LOC: ER 12:28 → MEDS 19:45
PROVIDERS: Internal Medicine; Nurse Practitioner Acute Care; Physician Assistant; ADMIT Student in an Organized Health Care Education/Training Program
PROC: 0T9B70Z Drainage of Bladder with Drainage Device, Via Natural or Artificial Opening (ICD-10-PCS; principal; 2025-07-12)
DX: N17.9 Acute kidney failure, unspecified (principal); E87.1 Hypo-osmolality and hyponatremia; F03.94 Unspecified dementia, unspecified severity, with anxiety; K59.03 Drug induced constipation; T40.605A Adverse effect of unspecified narcotics, initial encounter; N18.30 Chronic kidney disease, stage 3 unspecified; K58.1 Irritable bowel syndrome with constipation; I95.9 Hypotension, unspecified; F41.1 Generalized anxiety disorder; D72.829 Elevated white blood cell count, unspecified; G89.29 Other chronic pain; M54.9 Dorsalgia, unspecified; M79.7 Fibromyalgia; I12.9 Hypertensive chronic kidney disease with stage 1 through stage 4 chronic kidney disease, or unspecified chronic kidney disease; M19.90 Unspecified osteoarthritis, unspecified site; N13.30 Unspecified hydronephrosis; R33.8 Other retention of urine; E87.70 Fluid overload, unspecified; Z91.040 Latex allergy status; Z88.5 Allergy status to narcotic agent; Z88.0 Allergy status to penicillin; Z86.73 Personal history of transient ischemic attack (TIA), and cerebral infarction without residual deficits; Z79.891 Long term (current) use of opiate analgesic
CPT/HCPCS: 36415; 51702; 76770; 80048; 80053; 81001; 83735; 83880; 85025; 85027; 93005; 93010; 96360; 96360-59; 96361; 97116; 97161; 97530; 99285-25; A9270; J1644; J7030; J7040; J7120